=== PATIENT | male | born 1955 | race Caucasian/White ===

== ENCOUNTER 2021-09-04 07:07 | Day surgery (SDC) | payer OTHER, SELFPAY ==
[~2021-09-04] VITALS: Ht 170.2 cm; Wt 81.6 kg
[2021-09-04 14:42] VITALS: BP_SYST 98
== END 2021-09-04 10:50 | disposition home or self-care (01) ==
LOC: SDS 07:07 → SMU 07:11 → SDS 10:50
PROVIDERS: ATTEND Dentist General Practice
DX: M27.2 Inflammatory conditions of jaws (principal); M89.8X0 Other specified disorders of bone, multiple sites; M26.603 Bilateral temporomandibular joint disorder, unspecified; G47.33 Obstructive sleep apnea (adult) (pediatric); K05.223 Aggressive periodontitis, generalized, severe; K12.2 Cellulitis and abscess of mouth; I25.2 Old myocardial infarction; K21.9 Gastro-esophageal reflux disease without esophagitis; Z79.899 Other long term (current) drug therapy; Z20.822 Contact with and (suspected) exposure to COVID-19
CPT/HCPCS: 21025; 21215; 36415; 41826; 70140; 87426; C1713 ×2

== ENCOUNTER 2021-09-24 07:30 | Day surgery (SDC) | payer OTHER, SELFPAY ==
[~2021-09-24] VITALS: Ht 170.2 cm; Wt 81.6 kg
[2021-09-24] MEDS ORDERED: NS 500 ML IV.SOLN IV ONE (13:19)
[2021-09-24] MEDS ORDERED: NS 100 ML BAG ONE (13:19)
[2021-09-24] MEDS ORDERED: NS IRRIG SOLN 1000 ML IR ONE (13:19)
[2021-09-24] MEDS ORDERED: ARTICAINE HCL/EPINEPHRINE 4%/1:200,000 BIT 1.7 ML CARTRIDGE IJ ONE (13:19)
[2021-09-24 16:23] VITALS: BP_SYST 123
== END 2021-09-24 16:23 | disposition home or self-care (01) ==
LOC: SMU 07:30 → UNDOADMIN 07:30 → SDS 07:30 → EDSTATUS 10:15 → UNDODISIN 16:23 → SDS 16:23
PROVIDERS: ATTEND Dentist General Practice
DX: M27.2 Inflammatory conditions of jaws (principal); I25.2 Old myocardial infarction; K21.9 Gastro-esophageal reflux disease without esophagitis; G47.33 Obstructive sleep apnea (adult) (pediatric); M89.8X0 Other specified disorders of bone, multiple sites; M26.603 Bilateral temporomandibular joint disorder, unspecified; K05.223 Aggressive periodontitis, generalized, severe; K12.2 Cellulitis and abscess of mouth; Z79.899 Other long term (current) drug therapy; Z20.822 Contact with and (suspected) exposure to COVID-19
CPT/HCPCS: 21215; 21249; 36415; 70140; 87426; C1713 ×2; J7040

== ENCOUNTER 2021-12-11 06:47 | Day surgery (SDC) | payer OTHER ==
[~2021-12-11] VITALS: Ht 170.2 cm; Wt 84.8 kg
[2021-12-11] MEDS ORDERED: NS 250 ML IV.SOLN IV ONE (10:26)
[2021-12-11] MEDS ORDERED: ARTICAINE HCL/EPINEPHRINE 4%/1:200,000 BIT 1.7 ML CARTRIDGE IJ ONE (10:26)
[2021-12-11] MEDS ORDERED: NS IRRIG SOLN 1000 ML IR ONE (10:26)
[2021-12-11] MEDS ORDERED: BENZOCAINE 20% GEL 32 GM BOTTLE MM ONE (10:26)
[2021-12-11 11:13] VITALS: BP_SYST 113
== END 2021-12-11 11:35 | disposition home or self-care (01) ==
LOC: SDS 06:47 → STU 06:48 → SDS 11:35
PROVIDERS: ATTEND Dentist General Practice
DX: M27.2 Inflammatory conditions of jaws (principal); M89.8X0 Other specified disorders of bone, multiple sites; M26.603 Bilateral temporomandibular joint disorder, unspecified; K05.223 Aggressive periodontitis, generalized, severe; I10 Essential (primary) hypertension; E78.5 Hyperlipidemia, unspecified; F32.9 Major depressive disorder, single episode, unspecified; I25.10 Atherosclerotic heart disease of native coronary artery without angina pectoris; K05.6 Periodontal disease, unspecified; I25.2 Old myocardial infarction; K21.9 Gastro-esophageal reflux disease without esophagitis; G47.33 Obstructive sleep apnea (adult) (pediatric); Z79.82 Long term (current) use of aspirin; Z79.899 Other long term (current) drug therapy; Z20.822 Contact with and (suspected) exposure to COVID-19
CPT/HCPCS: 21025; 21215; 21248; 36415; 41826; 70140; 87426; C1713; J7050